=== PATIENT | female | born 1980 | race Caucasian/White ===

== ENCOUNTER 2016-10-12 14:28 | Emergency (ER) | payer SELFPAY ==
--- NOTE | 2016-10-12 15:25 | NUR ---
PATIENT LEFT WITHOUT BEING SEEN BY DR. LOPEZ. NO FURTHER CARE PROVIDED FOR PATIENT.
== END 2016-10-12 15:25 | disposition left against medical advice (07) ==
LOC: MED 14:28
DX: Z53.21 Procedure and treatment not carried out due to patient leaving prior to being seen by health care provider (principal)

== ENCOUNTER 2017-08-29 22:12 | Inpatient (IN) | payer OTHER ==
[~2017-08-29] VITALS: Ht 167.6 cm; Wt 77.1 kg
[2017-08-29] MEDS ORDERED: OXYTOCIN 20 UNITS in LACTATED RINGERS 1,000 ML IV SCH (22:52)
[2017-08-29] MEDS ORDERED: PREN-546 PO (22:52)
[2017-08-29] MEDS ORDERED: RANI150T15 PO (22:52)
[2017-08-29] MEDS ORDERED: METHYLERGONOVINE 0.2 MG/ML AMP IM PRN (22:55)
[2017-08-29] MEDS ORDERED: PROMETHAZINE 25 MG/ML VIAL IVP PRN (22:55)
[2017-08-29] MEDS ORDERED: IBUPROFEN 800 MG TAB PO PRN (22:55)
[2017-08-29] MEDS ORDERED: NALBUPHINE 10 MG/ML AMP IVP PRN (22:55)
[2017-08-29] MEDS ORDERED: CARBOPROST 250 MCG/ML AMP IM PRN (22:55)
[2017-08-29] MEDS ORDERED: MISOPROSTOL 25 MCG TAB ONE (23:07)
[2017-08-29 23:22] LABS: BASOPHILS % (AUTO) 0.1 % (0.0-2.0); EOSINOPHILS # (AUTO) 0.1 K/uL (0-0.4); EOSINOPHILS % (AUTO) 0.7 % (0.0-4.0); HEMATOCRIT 35.6 % (36-48); HEMOGLOBIN 11.7 g/dL (12.0-16.0); LYMPHOCYTES # (AUTO) 1.6 K/uL (2.5-16.5); LYMPHOCYTES % (AUTO) 19.2 % (20.5-51.1); MEAN CORPUSCULAR HEMOGLOBIN 26 pg (27-31); MEAN CORPUSCULAR HGB CONC 33 g/dL (33-37); MEAN CORPUSCULAR VOLUME 80.5 fL (80-94); MONOCYTES # (AUTO) 0.7 K/uL (0.8-1.0); NEUTROPHILS # (AUTO) 5.9 K/uL (1.8-7.7); PLATELET COUNT (AUTO) 249 K/uL (140-450); RED BLOOD CELL COUNT(AUTO) 4.42 MIL/uL (4.20-5.40); RED CELL DISTRIBUTION WIDTH 15.4 % (11.6-13.7); WHITE BLOOD COUNT (AUTO) 8.2 K/uL (4.8-10.8)
[2017-08-29] MEDS: LACTATED RINGERS 1,000 ML IV SCH (23:39)
[2017-08-29] MEDS: MISOPROSTOL 25 MCG TAB VG SCH (23:41)
[2017-08-29 23:44] LABS: ANION GAP 17.4 (8-16); CARBON DIOXIDE 19.6 mmol/L (21-32); CREATININE 0.6 mg/dL (0.6-1.3)
[2017-08-29 23:48] LABS: ALBUMIN 2.4 g/dL (3.4-5.0); TOTAL BILIRUBIN 0.2 mg/dL (0.0-1.0)
[2017-08-30] MEDS ORDERED: MISOPROSTOL 25 MCG TAB VG SCH
[2017-08-30 00:20] LABS: APPEARANCE,URINE SL CLOUDY (CLEAR); BILIRUBIN,URINE NEGATIVE (NEGATIVE); BLOOD, URINE NEGATIVE (NEGATIVE); COLOR,URINE YELLOW (YELLOW); LEUKOCYTE ESTERASE ,URINE NEGATIVE (NEGATIVE); NITRITE, URINE NEGATIVE (NEGATIVE); UGLUCOSE NEGATIVE (NEGATIVE)
[2017-08-30 00:28] LABS: RBC,URINE 0-5 (RARE) /HPF (0-5)
[2017-08-30 00:29] LABS: CALCIUM OXALATE CRYSTALS,UR 70-100 /HPF (None Seen)
[2017-08-30 01:12] VITALS: BP 122/78
[2017-08-30] MEDS ORDERED: BUPIVACAINE 0.125%/NS PREMIX 250 ML ONE (01:48)
[2017-08-30] MEDS: LACTATED RINGERS 1,000 ML IV SCH ×2 (02:00→02:50)
[2017-08-30] MEDS ORDERED: MISOPROSTOL 25 MCG TAB ONE (02:41)
[2017-08-30] MEDS: MISOPROSTOL 25 MCG TAB VG SCH (02:45)
[2017-08-30] MEDS ORDERED: OXYTOCIN 10 UNITS/ML VIAL IM ONE (07:00)
[2017-08-30] MEDS ORDERED: OXYTOCIN 20 UNITS/LR PREMIX 1,000 ML IV ONE (07:10)
[2017-08-30] MEDS ORDERED: OXYTOCIN 10 UNITS/ML VIAL ONE (08:30)
[2017-08-30] MEDS ORDERED: OXYTOCIN 10 UNITS/ML VIAL IM PRN (09:20)
[2017-08-30] MEDS ORDERED: TEMAZEPAM 15 MG CAP PO PRN (09:20)
[2017-08-30] MEDS ORDERED: BENZOCAINE/MENTHOL 20%-0.5% 60 GM CAN TP PRN (09:20)
[2017-08-30] MEDS ORDERED: METHYLERGONOVINE 0.2 MG/ML AMP IM PRN (09:20)
[2017-08-30] MEDS ORDERED: MEASLES, MUMPS, AND RUBELLA 1 VIAL SQVAC PRN (09:20)
[2017-08-30] MEDS ORDERED: METHYLERGONOVINE 0.2 MG TAB PO PRN (09:20)
[2017-08-30] MEDS ORDERED: SODIUM PHOSPHATE 118 ML ENEM RC PRN (09:20)
[2017-08-30] MEDS: oxyCODONE/APAP 5/325 MG 1 TAB TAB PO PRN ×2 (12:51→17:12)
[2017-08-30] MEDS ORDERED: oxyCODONE/APAP 5/325 MG 1 TAB TAB ONE (12:52)
[2017-08-30] MEDS: HYDROcodone/APAP 5/325 MG 1 TAB TAB PO PRN ×2 (14:58→20:09)
[2017-08-30] MEDS ORDERED: DOCUSATE SOD/SENNA 50/8.6 MG 1 TAB PO SCH (21:00)
[2017-08-31] MEDS: oxyCODONE/APAP 5/325 MG 1 TAB TAB PO PRN (01:47)
[2017-08-31] MEDS: HYDROcodone/APAP 5/325 MG 1 TAB TAB PO PRN ×4 (05:11→20:48)
[2017-08-31 06:56] LABS: HEMATOCRIT 35.9 % (36-48)
[2017-09-01] MEDS: HYDROcodone/APAP 5/325 MG 1 TAB TAB PO PRN ×2 (03:44→10:45)
[2017-09-01] MEDS ORDERED: IBUP-1842 PO (08:57)
== END 2017-09-01 18:15 | disposition home or self-care (01) | DRG 560 ==
LOC: MLD 22:12 → MFCC 08-30 13:52
PROVIDERS: ADMIT Obstetrics & Gynecology; ATTEND Obstetrics & Gynecology
PROC: 10907ZC Drainage of Amniotic Fluid, Therapeutic from Products of Conception, Via Natural or Artificial Opening (ICD-10-PCS; principal; 2017-08-30)
PROC: 10D07Z6 Extraction of Products of Conception, Vacuum, Via Natural or Artificial Opening (ICD-10-PCS; 2017-08-30)
PROC: 3E0R3BZ Introduction of Anesthetic Agent into Spinal Canal, Percutaneous Approach (ICD-10-PCS; 2017-08-30)
PROC: 00HU33Z Insertion of Infusion Device into Spinal Canal, Percutaneous Approach (ICD-10-PCS; 2017-08-30)
PROC: 0KQM0ZZ Repair Perineum Muscle, Open Approach (ICD-10-PCS; 2017-08-30)
PROC: 3E0P7VZ Introduction of Hormone into Female Reproductive, Via Natural or Artificial Opening (ICD-10-PCS; 2017-08-30)
DX: O24.420 Gestational diabetes mellitus in childbirth, diet controlled (principal); O99.344 Other mental disorders complicating childbirth; N20.0 Calculus of kidney; O69.1XX0 Labor and delivery complicated by cord around neck, with compression, not applicable or unspecified; F41.9 Anxiety disorder, unspecified; O70.0 First degree perineal laceration during delivery; Z3A.40 40 weeks gestation of pregnancy; Z37.0 Single live birth; Z88.8 Allergy status to other drugs, medicaments and biological substances; Z28.21 Immunization not carried out because of patient refusal; O75.89 Other specified complications of labor and delivery
CPT/HCPCS: 36415; 51702; 59200; 80053; 81001; 85018; 85025; 86592; 86886; 86900; 86901; 87086; J2590; J3490; J7120